=== PATIENT | male | born 2000 | race Caucasian/White ===

== ENCOUNTER 2024-04-28 12:02 | Emergency (ER) | payer OTHER, SELFPAY ==
[2024-04-28 12:06] VITALS: BP 144/78
[2024-04-28 12:12] VITALS: BMI 24.8
[2024-04-28 12:20] LABS: Glucose - Point of Care 101 mg/dl (70-99)
[2024-04-28 12:35] LABS: % Basophils 0.9 % (0-2); % Eosinophils 6.6 % (0-6); % Immature Granulocytes 0.3 % (0-0.5); % Lymphocytes 39.8 % (20.5-51.1); % Monocytes 8.4 % (1.7-9.3); Absolute Basophils 0.1 10^3/uL (0-0.2); Absolute Eosinophils 0.4 10^3/uL (0-0.7); Absolute Lymphocytes 2.7 10^3/uL (1.2-3.4); Absolute Monocytes 0.6 10^3/uL (0.1-0.6); Absolute Neutrophils 2.9 10^3/uL (1.4-6.5); Hematocrit 43.8 % (39.0-52.0); Hemoglobin 15.9 g/dL (13.0-18.0); Mean Corp Hgb Conc. 36.3 g/dL (33.0-37.0); Mean Corpuscular Hgb 29.6 pg (27.0-31.0); Mean Corpuscular Volume 81.4 fL (80.0-94.0); Mean Platelet Volume 11.3 fL (7.4-10.4); Nucleated Red Blood Cells % 0 % (-); Platelet Count 232 10^3/uL (130-400); Red Blood Cell Count 5.38 10^6/uL (4.70-6.10); Red Cell Dist. Width 12.4 % (11.5-14.5); White Blood Cell Count 6.7 10^3/uL (4.8-10.8)
[2024-04-28 12:48] LABS: ALT (SGPT) 26 U/L (0-50); AST (SGOT) 24 U/L (17-59); Albumin 5.3 g/dl (3.5-5.0); Alkaline Phosphatase 76 U/L (38-126); Blood Urea Nitrogen 12 mg/dl (9-20); Calcium 10.1 mg/dl (8.4-10.2); Carbon Dioxide 21 mmol/L (22-30); Chloride 99 mmol/L (98-107); Estimated Creatinine Clearance 122 ml/min; Glucose 97 mg/dl (70-99); Potassium 3.7 mmol/L (3.5-5.1); Sodium 140 mmol/L (135-145); Total Bilirubin 1.1 mg/dl (0.2-1.3); Total Protein 7.5 g/dl (6.3-8.2); eGFR > 60.00
--- NOTE | 2024-04-28 12:52 | ED.GENMED ---
History of Present Illness
General
Chief Complaint: Fainting Sensation
Source: patient
Exam Limitations: none
Time Seen by Provider: 04/28/24 12:14
History of Present Illness
History of Present Illness:
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 Became lightheaded while sitting at work. Then noticed his hands cramping up. No syncope but near syncope. No chest pain or shortness of breath. Feels fine now. Has a history of SVT with a heart rate up to 200. Recently
started on metoprolol.
Past History
Past History
ED Past Medical History: Arrthythmia (SVT)
Phy Exam
Physical Exam
Physical Exam:
GENERAL: Alert and oriented in no apparent distress
EYE: Orbits normal.
NECK: Supple, no thyroid palpable.
ENT: Pharynx without erythema
CARDIAC: Borderline tachycardia and regular no murmur
LUNGS: Clear breath sounds,normal
ABDOMEN: Soft, without focal tenderness or distention
NEUROLOGICAL: Alert and oriented , grossly non-focal. Some mild anxious tremors to both hands
SKIN: Warm and dry, no rash or lesion, no discoloration, skin intact.
MUSCULOSKELETAL: No edema,no deformity.Good color
PSYCH: Normal and appropriate interaction. Mildly anxious
Course
Orders/Labs/Results
Orders:
Orders
04/28/24 12:05
Electrocardiogram (*1) Urgent
Reason for Study: Syncope
EKG- Treatment ONCE
04/28/24 12:23
Complete Blood Count/With Diff Urgent
Comprehensive Metabolic Panel Urgent
TSH Reflex To Free T4 Urgent
04/28/24 15:07
D-Dimer Urgent
Abnormal Lab Results
04/28/24 04/28/24
12:18 12:23
MPV 11.3 H fL
(7.4-10.4)
Eosinophils % 6.6 H %
(0-6)
Carbon Dioxide 21 L mmol/L
(22-30)
Albumin 5.3 H g/dl
(3.5-5.0)
POC Glucose 101 H mg/dl
(70-99)
04/28/24 12:23
04/28/24 12:23
Vital Signs
Initial and Last Documented VS:
Initial Vital Signs
Temp Pulse Resp BP Pulse Ox
98.6 F 104 12 144/78 100
04/28/24 12:06 04/28/24 12:06 04/28/24 12:06 04/28/24 12:06 04/28/24 12:06
Last Documented Vital Signs
Temp Pulse Resp BP Pulse Ox
98.6 F 90 17 117/78 99
04/28/24 12:06 04/28/24 15:30 04/28/24 15:30 04/28/24 14:00 04/28/24 14:30
MDM/Problems Addressed
Differential Diagnosis Includes:
Patient's second part of the hand spasms is all consistent with carpopedal spasm. However what triggered the initial event is uncertain. He does wear a monitor with his watch. Nothing to show any significant tachycardia or bradycardia on the
monitor. Has remained stable here. Will check labs thyroid monitor discussed with cardiology. Likely stable for discharge at some point
*Pulse Oximetry
Patient hypoxic: no
*EKG
Interpreted by ED Provider?: Yes
Comparison EKG: no comparison EKG present
Heart Rate: 97
Rate: normal
Rhythm: sinus
[place]: normal axis
Interval: normal interval
QRS Pattern: normal QRS
Ischemia: no ischemia
*Catering And Events Manager Interpretation
Rate: tachycardiac
Interpretation: abnormal
Heart Rate: 103
Rhythm: sinus
*Critical Care Note
Total Time (30-74mins, 75-104mins- exclusive of procedures): Not Applicable
Update Note
Update Note:
Patient is remained stable and nontoxic. Mildly tachycardic but normal sinus tachycardia. Elected to do a D-dimer which is negative. Low clinical suspicion for PE. Cardiology was contacted and will follow-up.
ED Attending Note
-
Portions of this chart may have been created with voice recognition software.� Occasional wrong word or��sound alike� substitutions may have occurred due to the inherent limitations of voice recognition software.
Discharge Plan
Departure
Patient Disposition: Home (Routine Discharge)
Date of Disposition: 04/28/24
Time of Disposition: 15:41
Patient with high blood pressure during this ER visit?: No
Discharge Problem:
Near syncope, Tachycardia
Instructions: Tachycardia, Near Fainting (DC)
Referrals:
Marco Pabon Jr., DO [Family Provider] - Follow up in 2-3 days
Activity Restrictions/Additional Instructions:
Call your grain cleaner and transfer operator for close follow-up
Interventions
Interventions:
*Risk Screen - Suicide Last Done: 04/28/24 12:13
*General Assessment Last Done: 04/28/24 12:13
*Neglect/Abuse Screening Last Done: 04/28/24 12:13
ED- Fall Risk Assessment Last Done: 04/28/24 12:14
*ED COVID-19 Vaccine History Last Done: 04/28/24 12:13
*Nursing Disposition Last Done: 04/28/24 15:54
ED- Cardiac Assessment Last Done: 04/28/24 12:14
ED- Neurological Assessment Last Done: 04/28/24 12:14
Discharge Date and Time
Discharge Date/Time: 04/28/24 15:58
Print Language: MALTESE
[2024-04-28 13:10] VITALS: BP 123/71
[2024-04-28 13:37] LABS: TSH Reflex To Free T4 2.14 uIU/ml (0.47-4.68)
[2024-04-28 14:00] VITALS: BP 117/78
[2024-04-28 15:26] LABS: D-Dimer 0.29 ug/mlFEU (0.00-0.50)
== END 2024-04-28 15:58 | disposition home or self-care (01) ==
LOC: EMR 12:02
PROVIDERS: Emergency Medicine; EMERGENCY PHYSICIAN Emergency Medicine; FAMILY PHYSICIAN Family Medicine
DX: R55 Syncope and collapse (principal); R00.0 Tachycardia, unspecified; Z86.79 Personal history of other diseases of the circulatory system
CPT/HCPCS: 99283; 80053; 82962; 84443; 85025; 85379; 93005

== ENCOUNTER 2024-07-04 08:03 | Day surgery (SDC) | payer OTHER, SELFPAY ==
[2024-06-27 12:41] VITALS: BMI 25.5
--- NOTE | 2024-06-27 12:42 | HPS.HSE ---
Family Physician
-
Family Physician: Marco Pabon Jr.
Chief Complaint
-
Supraventricular tachycardia.
History of Present Illness
The patient is a 23 year old male presenting today for supraventricular tachycardia. The patient reports intermittent rapid heart beats associated with this diagnosis over the last 5 years. Unfortunately, these episodes are now increasing in
frequency and severity. He reports that he experiences these episodes 2-3 times a month with symptoms lasting anywhere between 30 seconds to 7 minutes. He was initially placed on Toprol-XL but he did not tolerate the side effects. He has since
stopped taking this medication. He can, at times, break his arrhythmia with vagal maneuvers. He notes that his current symptoms greatly interfere with his activities of daily living and overall impact his quality of life. He is interested in
pursuing an EP study and supraventricular tachycardia ablation for further arrhythmia management. He denies any current complaints today such as chest pain, shortness of breath, nausea, vomiting, diarrhea, lightheadedness, dizziness, cough, sore
throat, or fever.
Medical History
Past Medical History
Past Medical History: Reports Other
Additional Past Medical History:
1. Supraventricular tachycardia.
2. Asthma, mild and intermittent.
3. Irritable bowel syndrome with diarrhea.
4. Remote migraines.
5. Vertigo.
6. Mildly elevated transaminase.
7. History of tobacco abuse.
Past Surgical History: Reports Other
Additional Past Surgical History:
1. Right orchiopexy per records.
2. [place] teeth extraction.
Social History
Tobacco: Former Smoker (He is a former less than 1 pack per day cigarette smoker who quit tobacco altogether 3 years ago. )
Alcohol: Occasional
Living: Other (He lives with his parents in a 3 story home. )
Family History
Family History: Not pertinent
Allergies / Home Medications
Allergy/Medication List:
Home medications:
1. Benadryl 25 mg p.o. three times a day as needed.
2. Shahnaz 180 mg p.o. daily.
3. Sudafed 30 mg p.o. daily as needed.
4. Albuterol sulfate 2 puffs inhaled every 6 hours as needed.
Allergies: Seasonal.
Adverse drug reactions: Toprol-XL (fatigue, lightheadedness).
Review of Systems
-
A 12 point ROS was completed and negative except as noted: Yes
Physical Exam
Vital Signs
Blood pressure 116/83. Heart rate 91. Respirations 18. Pulse ox 100% on room air.
Height 5 feet, 10 inches. Weight 80.7 kg. BMI 25.5.
Physical Exam
General: Well Developed, Well Nourished and No Apparent Distress
HEENT: NormoCephalic, Moist mucous membranes, Atraumatic and PERRLA
Respiratory: Clear
Cardiac: Regular Rhythm
GI: Soft, Non Tender and Non Distended
Musculoskeletal: No Edema and Normal Gait & Station
Skin: Warm and Dry
Neuro: AO x 3 and Nonfocal/grossly intact
Laboratory Results
-
DIAGNOSTIC STUDIES as of 06/27/2024: White blood cell count 5.7. Hemoglobin 15.9. Platelet count 177,000. Sodium 137. Potassium 4.6. BUN 14. Creatinine 1.0. Glucose 94. Calcium 10.0. AST 44. ALT 66. Albumin 5.0.
EKG 06/27/2024: Sinus rhythm with marked sinus arrhythmia.
Impression/Plan
-
IMPRESSION/PLAN:
1. Supraventricular tachycardia: The patient is in need of an EP study and supraventricular tachycardia ablation with Dr. Raiza Mcmullen on 07/04/2024. The benefits and risks of the procedure have been explained to the patient. The patient
understands these risks and wishes to proceed.
[2024-06-27 13:21] LABS: % Basophils 0.7 % (0-2); % Immature Granulocytes 0.2 % (0-0.5); % Lymphocytes 36.4 % (20.5-51.1); % Monocytes 6.8 % (1.7-9.3); % Neutrophils 51.9 % (42.2-75.2); Absolute Eosinophils 0.2 10^3/uL (0-0.7); Absolute Lymphocytes 2.1 10^3/uL (1.2-3.4); Absolute Monocytes 0.4 10^3/uL (0.1-0.6); Hematocrit 45.3 % (39.0-52.0); Hemoglobin 15.9 g/dL (13.0-18.0); Mean Corp Hgb Conc. 35.1 g/dL (33.0-37.0); Mean Corpuscular Hgb 29.8 pg (27.0-31.0); Mean Corpuscular Volume 84.8 fL (80.0-94.0); Mean Platelet Volume 11.1 fL (7.4-10.4); Nucleated Red Blood Cells % 0 % (-); Platelet Count 177 10^3/uL (130-400); Red Blood Cell Count 5.34 10^6/uL (4.70-6.10); Red Cell Dist. Width 12.4 % (11.5-14.5); White Blood Cell Count 5.7 10^3/uL (4.8-10.8)
[2024-06-27 13:34] LABS: ALT (SGPT) 66 U/L (0-50); AST (SGOT) 44 U/L (17-59); Alkaline Phosphatase 64 U/L (38-126); Blood Urea Nitrogen 14 mg/dl (9-20); Carbon Dioxide 28 mmol/L (22-30); Chloride 100 mmol/L (98-107); Estimated Creatinine Clearance 119 ml/min; Glucose 94 mg/dl (70-99); Potassium 4.6 mmol/L (3.5-5.1); Sodium 137 mmol/L (135-145); Total Bilirubin 0.9 mg/dl (0.2-1.3); Total Protein 7.4 g/dl (6.3-8.2); eGFR > 60.00
[2024-07-04] VITALS (12 sets, daily range): BP systolic 107–123; BP diastolic 67–96; BMI 25.1
--- NOTE | 2024-07-04 12:57 | ITS.CL.ABL ---
Recapper - Ablation
Ablation
Procedure Report:
Supra-Ventricular Tachycardia Ablation:
Mr. Booth is a very pleasant�23 yr old gentleman with medical history significant for palpitations and was diagnosed with supra-ventricular tachycardia (SVT) with EKG showed short RP tachycardia. He presented today to the EP lab for
electrophysiology (EP) study of the heart and possible ablation of the SVT.
Date of Procedure:
07/04/2024
�
Indications: Supra-Ventricular Tachycardia (SVT)
�
Pre-Operative Diagnosis: Supra-Ventricular Tachycardia (SVT)
�
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
�
Procedure Performed: EP study and SVT ablation
�
Performing Physician:
Raiza Mcmullen MD
��
Anesthesia:
See anesthesia records
�
Detailed Description of the Procedure:
Written informed consent was obtained from the patient after a full explanation of the risks and benefits of the procedure including the risks of sedation and anesthesia. The patient was brought to the electrophysiology laboratory in stable
condition in fasting state. Continuous electrocardiographic and hemodynamic monitoring was initiated.
The initial rhythm was normal sinus.
The procedure site was meticulously prepared with surgical scrub and allowed to dry with no pooling. Sterile draping was applied to cover the procedure site. The image intensifier was draped with sterile bag and positioned over the patient.
Sheath and Catheter Placement:
After infusion of local anesthetic, vascular access was obtained under ultrasound guidance and sheaths were placed over guide wire as detailed below.
�
Sheaths:
- � � � 6 Fr sheath in right femoral vein
- � � � 7 Fr sheath in right femoral vein
- � � � 8 Fr that was later upgraded to Agilis sheath in right femoral vein
�
Catheters:
- � � � 6Fr - Monico Quad-cath at RVa
- � � � 6Fr � QRD Quad - cath at HIS
- � � � Bard Decapolar catheter - at locations of CS
- � � � Biosense Thakkar EZ steer non-irrigated 4 mm ablation catheter
�
�Following the sheaths placement, patient was given Heparin bolus and EP study was done.
\\Baseline intervals (milliseconds):
PP interval (baseline cycle length): 680
P wave duration:126
MN interval:136
QRS duration: 78
QT interval: 404
�
AH interval: 86
His duration: 18
HV interval: 47
Q onset to RVa: 0
��
Sinus Node Function:
HRA pacing showed adequate threshold. The sinus node functions are within acceptable normal range.
�
Atrioventricular Rose Function:
Atrial stimulation with incremental pacing intervals was performed from the high right atrium (HRA) and right ventricular apex (RVa) and antegrade and retrograde atrioventricular (AV) block cycle lengths were determined. The antegrade AV Wenckebach
was noted at 310 msec.
Patient went into SVT 310 msec.
�
SVT Arrhythmia Induction:
There were PACs, PVCs and easily inducible tachycardia noted.
Tachycardia:
The tachycardia was studies with a cycle length of 310 msec. The tachycardia was concentric and had short VA time. The tachycardia was entrained from the ventricle and the proximal CS. The ventricle was out of the tachycardia cycle and attempt from
the entrainment from CS maneuver terminated the tachycardia. Following observations were noted. �
a)�Simultaneous A and V (Septal VA interval of <70 ms was at 40msec).�
b) Ventricular Overdrive pacing demonstrated a VAHV�response�
c) SA-VA >85 (180 � 40)
d) PPI-TCL >115msec (430 msec)
e) HIS synchronous PVC dissociated the RV from the tachycardia
f) HIS synchronous PAC dissociated the RA from the tachycardia
j) The tachycardia was terminated with early PAC or PVC by engaging the AV node showing dependence on the AV node.
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
The tachycardia once induced was easily inducible by simply moving the catheter in the annulus area. The RV entrainment again confirmed the diagnosis of AVNRT.
Electroanatomic 3D Mapping (EAM) and Ablation:
Patient was given Heparin bolus. The HRA was removed and was upgraded to Agilis sheath for ablation catheter. EAM and radiofrequency ablation was performed using a non-irrigation, EZ steer 4 mm radiofrequency ablation catheter. 3D mapping was
performed with Carto Version 6 software. Cardiac anatomy as established. His cloud was established. The triangle of Dinh was marked with ablation catheter. There was a narrow area between the anterior border of the CS and the tricuspid annulus.
A slow pathway AVNRT ablation was pursued. Radiofrequency ablation lesions were applied to the anatomic slow pathway area targeting spike and dome electrograms with > 1:7 A:V ratio just below the His cloud. There were multitude of Junctional beats
with 1:1 VA relationship noted. There was no non-conducted beat.
Post Ablation EP study:
The post ablation EP study showed normal AV conduction. The MN was 160msec; QRS was 86msec; AH was 85msec with HV of 45msec. There was no sign of AV block noted.
Programmed atrial stimulation was performed with drive train of 600 msec followed by a single atrial extra-stimulus and the AV rose and the atrial ERPs were determined. The AV rose ERP was 600/250 msec and the atrial ERP was <250msec.
There was normal decremental conduction noted through the AV node. The programmed stimuli showed no more AH jump. There was a single ECHO beat vs PAC noted.
The ventricular stimulation showed normal retrograde conduction via the AV node.
�
Ventricular Function:
Single ventricular extrastimuli showed V conduction was normal with below 500 msec ventricular conduction. The ventricular electrical functions are within acceptable range.
Aggressive maneuvers including burst pacing were employed with no inducible tachycardia now.
No tachycardia was inducible now.
Procedure End
Following the completion of the EP study, catheters were removed. The sheaths were removed and hemostasis achieved with figure of 8 suture and manual compression.
Recommendations:
��������� Likely discharge home today.
��������� No change in home medications.
�
Estimated Blood loss:
<5 cc
�
Specimens Removed:
None.
�
Implants / Devices:
None
�
Urine output:
None
�
Packs / Drains/ Tubes:
None
�
Instrument / Sponge Count Correct:
Yes
�
Complications of the Procedure:
None
�
Condition of Patient at Time of Transfer:
Hemodynamically stable with no neurological or vascular compromise.
Summary:
Electrophysiology study with induction of atrioventricular rose re-entrant tachycardia (AVNRT) and successful modification of slow pathway.
== END 2024-07-04 17:24 | disposition home or self-care (01) ==
LOC: CATH 08:03
PROVIDERS: ATTENDING PHYSICIAN Internal Medicine Cardiovascular Disease; FAMILY PHYSICIAN Family Medicine; OTHER PHYSICIAN Internal Medicine Cardiovascular Disease
DX: I47.19 Other supraventricular tachycardia (principal); I47.20 Ventricular tachycardia, unspecified; J45.909 Unspecified asthma, uncomplicated; K58.9 Irritable bowel syndrome, unspecified; G43.909 Migraine, unspecified, not intractable, without status migrainosus; Z87.891 Personal history of nicotine dependence; R74.01 Elevation of levels of liver transaminase levels; R42 Dizziness and giddiness; I49.3 Ventricular premature depolarization; I49.1 Atrial premature depolarization
CPT/HCPCS: C1732; C1894; C1730; C1766; 36415; 80053; 85025; 93005; 93653